=== PATIENT | male | born 1940 | race Caucasian/White ===

== ENCOUNTER 2018-09-11 18:38 | Inpatient (IN) | payer MEDICARE ==
[~2018-09-11] VITALS: Ht 175.3 cm; Wt 97.5 kg
[2018-09-11] MEDS ORDERED: ALBUTEROL SULF 0.083% NEB SOLN 3 ML NEB NEB STA ×2 (18:47)
[2018-09-11] MEDS ORDERED: IPRATROPIUM BROMIDE 0.02% 2.5 ML NEB NEB STA (18:47)
[2018-09-11] MEDS ORDERED: METHYLPREDNISOLONE SOD SUCC 125 MG/2ML VIAL IV ONE (19:00)
--- NOTE | 2018-09-11 19:51 | Diagnostic Imaging Report ---
EXAMINATION: CXR 1 [facility] INDICATION: Shortness of breath and wheezing for about 24 hours. History of COPD. ^[id number] ^1934 COMPARISON: None FINDINGS: AP view TUBES and LINES: None. LUNGS: Lungs are well inflated. Bibasilar interstitial prominence. No focal consolidations. PLEURA: No pleural effusion or pneumothorax. HEART AND MEDIASTINUM: The cardiomediastinal silhouette is unremarkable. BONES AND SOFT TISSUES: No acute osseous lesion. Soft tissues are unremarkable. UPPER ABDOMEN: No free air under the diaphragm. IMPRESSION: Bibasilar interstitial prominence may reflect bronchitis. No focal consolidations. Signed by: DR. Bennett Ingram MD on 09/11/2018 7:48 PM
[2018-09-11] MEDS ORDERED: CEFTRIAXONE SOD 1 GM VIAL IV SCH (20:30)
[2018-09-11] MEDS ORDERED: SODIUM CHLORIDE FLUSH 10 ML SYR INJ PRN (20:30)
[2018-09-11] MEDS ORDERED: AZITHROMYCIN 500MG/NS 250 ML 250 ML IV SCH (20:30)
[2018-09-11] MEDS ORDERED: ASPIRIN 81 MG CHEW TAB PO ONE (20:30)
[2018-09-11] MEDS ORDERED: ZOLPIDEM TARTRATE 5 MG TAB PO PRN (20:45)
[2018-09-11] MEDS ORDERED: ONDANSETRON HCL INJ 2 MG/ML VIAL IV PRN (20:45)
[2018-09-11] MEDS ORDERED: IBUPROFEN 200 MG TAB PO PRN (20:45)
[2018-09-11] MEDS ORDERED: CLONIDINE HCL 0.1 MG TAB PO PRN (20:45)
[2018-09-11] MEDS ORDERED: DIPHENHYDRAMINE HCL INJ 50 MG/ML VIAL IV PRN (20:45)
[2018-09-11] MEDS ORDERED: ENALAPRILAT IV INJ 1.25 MG/ML VIAL IV PRN (20:45)
[2018-09-11] MEDS ORDERED: ACETAMINOPHEN 325 MG TAB PO PRN (20:45)
[2018-09-11] MEDS ORDERED: MORPHINE SULFATE 2 MG/ML SYR IV PRN (20:45)
[2018-09-11] MEDS ORDERED: HYDROCODONE/APAP 7.5MG-325MG 1 EA TAB PO PRN (20:45)
--- OUTSIDE RECORDS SUMMARY | 2018-09-11 21:39 | XMS REPORT ---
Author Author [facility] Address Unknown Phone Unavailable Care Team Providers Care Zipper Trimmer Name Role Phone Chet RAMIRES Unavailable Unavailable Problems This patient has no known problems. Allergies, Adverse Reactions, Alerts This patient has no known allergies or adverse reactions. Medications This patient has no known medications. Results Test Description Test Time Test Comments Text Results Atomic Results Result Comments CXR 1 [facility] 2018-09-11 19:44:00 [place] [address] Patient Name: OLGA TAO MR #: [id number] : 1940 Age/Sex: 78/M Req #: [id number] Adm Physician: Ordered by: CARLTON RAMIRES MD Report #: [id number] Location: [facility] Room/Bed: Procedure: [id number] HOPD/CXR 1 [facility] - [facility] Exam Date: 09/11/18 Exam Time: 1935 REPORT STATUS: Signed EXAMINATION: CXR 1 [facility] INDICATION: Shortness of breath and wheezing for about 24 hours. History of COPD. [id number] COMPARISON: None FINDINGS: AP view TUBES and LINES: None. LUNGS: Lungs are well inflated. Bibasilar interstitial prominence. No focal consolidations. PLEURA: No pleural effusion or pneumothorax. HEART AND MEDIASTINUM: The cardiomediastinal silhouette is unremarkable. BONES AND SOFT TISSUES: No acute osseous lesion. Soft tissues are unremarkable. UPPER ABDOMEN: No free air under the diaphragm. IMPRESSION: Bibasilar interstitial prominence may reflect bronchitis. No focal consolidations. Signed by: DR. Bennett Hyatt MD on 09/11/2018 7:48 PM Dictated By: BENNETT HYATT MD 47 Transcribed By: MARTY on 09/11/181947 COPY TO: CARLTON RAMIRES MD
--- NOTE | 2018-09-11 22:59 | Diagnostic Imaging Report ---
EXAM: CT Chest WITH contrast 09/11/2018 12:00 AM INDICATION: Patient complaining of worsening shortness of breath and wheezing COMPARISON: None TECHNIQUE: Chest was scanned utilizing a multidetector helical scanner from the lung apex through the level of the diaphragm after administration of IV contrast. Thin section reconstructions were obtained with special concentration on the pulmonary arteries. Coronal and sagittal reformations were obtained. Pulmonary embolism protocol was performed. IV CONTRAST: 100 cc of Isovue-370 RADIATION DOSE: Total DLP: 671.82 mGy*cm Estimated effective dose: (DLP x 0.014 x size factor) mSv COMPLICATIONS: None FINDINGS: LINES/ TUBES: None. LUNGS AND AIRWAYS: No filling defect is identified within the pulmonary arteries to the segmental level. The lungs are unremarkable. Airways are normal. PLEURA: The pleural spaces are clear. HEART AND MEDIASTINUM: The thyroid gland is normal. No mediastinal, hilar or axillary lymphadenopathy. The heart is normal in size.. There is no pericardial effusion. There are mild atherosclerotic calcifications in the aorta and coronary arteries.. Main pulmonary artery measures 2.9 cm in diameter , slightly dilated. UPPER ABDOMEN: Limited non-contrast views of the upper abdomen show no abnormality within the visualized liver, spleen, pancreas, or kidneys. The adrenal glands are normal. BONES: The visualized bony thorax is within normal limits for patient's age. Mild kyphotic deformity SOFT TISSUES: Unremarkable. IMPRESSION: 1. No evidence of acute intrathoracic abnormality, specifically no evidence of pulmonary embolism. 2. Mild atherosclerotic disease of the thoracic aorta and branches Signed by: Dr. Thomas Khan M.D. on 09/11/2018 10:55 PM
[2018-09-11] MEDS: ALBUTEROL/IPRATROPIUM 3 ML NEB NEB SCH (23:00)
[2018-09-12] VITALS (7 sets, daily range): BP systolic 121–157; BP diastolic 77–101
[2018-09-12] MEDS ORDERED: ATORVASTATIN CA10 MG PO (01:40)
[2018-09-12] MEDS ORDERED: LABETALOL HCL200 MG PO (01:40)
[2018-09-12] MEDS ORDERED: SYMBICORT 16010.2 GM IH (01:40)
[2018-09-12] MEDS ORDERED: AMLODIPINE BESY10 MG PO (01:40)
[2018-09-12] MEDS ORDERED: PROAIR HFA INH8.5 GM IH (01:40)
[2018-09-12] MEDS ORDERED: LEVOTHYROXINE50 MCG PO (01:40)
[2018-09-12 01:54] LABS: CREATINE KINASE MB 10.4 ng/mL (0-5.0)
[2018-09-12] MEDS: ALBUTEROL/IPRATROPIUM 3 ML NEB NEB SCH ×6 (03:00→23:58)
[2018-09-12 06:06] LABS: BASOPHILS % 0.2 % (0.0-1.0); HEMATOCRIT 40.3 % (38.2-49.6); HEMOGLOBIN 14.3 g/dL (14.0-18.0); LYMPHOCYTES # (AUTO) 0.8 (1.0-3.2); LYMPHOCYTES % 11.7 % (18.0-39.1); MEAN CORPUSCULAR HEMOGLOBIN 33.7 pg (28-32); MEAN CORPUSCULAR HGB CONC 35.5 g/dL (31-35); MONOCYTES # (AUTO) 0.1 (0.2-0.8); MONOCYTES % 0.9 % (4.4-11.3); NEUTROPHILS # (AUTO) 5.5 (2.1-6.9); NEUTROPHILS % 86.7 % (38.7-80.0); PLATELET COUNT 264 x10e3/uL (140-360); RED BLOOD COUNT 4.24 x10e6/uL (4.3-5.7); RED CELL DISTRIBUTION WIDTH 12.4 % (11.7-14.4)
[2018-09-12 06:31] LABS: ANION GAP 17.8 mmol/L (8-16); BLOOD UREA NITROGEN 13 mg/dL (7-26); BUN/CREATININE RATIO 16 (6-25); CALCIUM 9.1 mg/dL (8.4-10.2); CARBON DIOXIDE 22 mmol/L (22-29); CHLORIDE 95 mmol/L (98-107); CREATININE, SERUM 0.79 mg/dL (0.72-1.25); EST GLOMERULAR FILTRATION RATE > 60 ML/MIN (60-); GLUCOSE 136 mg/dL (74-118); POTASSIUM 4.8 mmol/L (3.5-5.1); SODIUM 130 mmol/L (136-145)
[2018-09-12] MEDS: FAMOTIDINE 20 MG TAB PO SCH ×2 (08:02→16:30)
[2018-09-12] MEDS: NICOTINE 14 MG/EA PATCH TOP SCH (09:07)
[2018-09-12 12:57] LABS: CREATINE KINASE MB 8.1 ng/mL (0-5.0)
[2018-09-12] MEDS ORDERED: FUROSEMIDE INJ 10 MG/ML 2 ML VIAL IV ONE (14:15)
[2018-09-12] MEDS: BENAZEPRIL HCL 10 MG TAB PO SCH (15:05)
[2018-09-12] MEDS: PREDNISONE 20 MG TAB PO SCH (15:05)
[2018-09-12] MEDS: AMLODIPINE BESYLATE 10 MG TAB PO SCH (15:05)
[2018-09-12] MEDS: ENOXAPARIN SOD INJ 40 MG/0.4 ML SYR SC SCH (17:35)
[2018-09-12] MEDS: DOXYCYCLINE HYCLATE TABLET 100 MG TAB PO SCH (17:35)
[2018-09-12] MEDS: ATORVASTATIN 10 MG TAB PO SCH (20:38)
[2018-09-13] VITALS (7 sets, daily range): BP systolic 119–143; BP diastolic 74–88
[2018-09-13] MEDS: ALBUTEROL/IPRATROPIUM 3 ML NEB NEB SCH ×6 (03:12→23:05)
[2018-09-13] MEDS: LEVOTHYROXINE SODIUM 100 MCG TAB PO SCH (05:15)
[2018-09-13] MEDS: FAMOTIDINE 20 MG TAB PO SCH (07:53)
[2018-09-13] MEDS: PREDNISONE 20 MG TAB PO SCH (09:24)
[2018-09-13] MEDS: AMLODIPINE BESYLATE 10 MG TAB PO SCH (09:24)
[2018-09-13] MEDS: BENAZEPRIL HCL 10 MG TAB PO SCH (09:24)
[2018-09-13] MEDS: NICOTINE 14 MG/EA PATCH TOP SCH (09:24)
[2018-09-13] MEDS: DOXYCYCLINE HYCLATE TABLET 100 MG TAB PO SCH ×2 (09:24→17:33)
[2018-09-13] MEDS ORDERED: FUROSEMIDE INJ 10 MG/ML 4 ML VIAL IV NR ×2 (11:45→17:00)
--- NOTE | 2018-09-13 13:42 | Diagnostic Imaging Report ---
EXAMINATION: CHEST SINGLE (PORTABLE) INDICATION: ^HYPOXEMIA COMPARISON: Chest x-ray 09/11/2018. FINDINGS: AP view TUBES and LINES: None. LUNGS: Lungs are well inflated. There are bibasilar atelectasis. There is mild prominence of the central pulmonary vasculature, consistent with pulmonary venous congestion. PLEURA: No pleural effusion or pneumothorax. HEART AND MEDIASTINUM: Cardiac size is mildly enlarged. There are atherosclerotic calcifications within the aorta. BONES AND SOFT TISSUES: No acute osseous lesion. Soft tissues are unremarkable. UPPER ABDOMEN: No free air under the diaphragm. IMPRESSION: Mild central pulmonary venous congestion. Signed by: Dr. Gunner Phelan M.D. on 09/13/2018 1:39 PM
[2018-09-13] MEDS: ENOXAPARIN SOD INJ 40 MG/0.4 ML SYR SC SCH (17:33)
[2018-09-13] MEDS: AZELASTINE HCL 137 MCG NASAL SPRAY NS SCH (17:33)
[2018-09-13] MEDS: ATORVASTATIN 10 MG TAB PO SCH (21:18)
--- NOTE | 2018-09-13 21:50 | Progress Note ---
DATE: September 13, 2018 CARDIOVASCULAR PROGRESS NOTE SUBJECTIVE: No major events overnight. Breathing has improved. Has been urinating quite a bit today with IV Lasix. No chest pain or shortness of breath. OBJECTIVE VITAL SIGNS: Temperature 96.0, pulse 86, respiratory rate 18, blood pressure 143/79, and satting 96% on 3 liters nasal cannula. GENERAL: Obese white man, in no acute distress. CARDIOVASCULAR: Regular rate and rhythm. No murmurs, rubs or gallops. LUNGS: Diffuse expiratory wheezing; however, air movement is improved compared to yesterday. ABDOMEN: Obese, soft, and nontender. No masses. NEURO AND PSYCH: Alert and oriented to person, place and time. Normal affect. LABORATORY DATA: Reviewed. IMAGING DATA: Reviewed. TELEMETRY DATA: Reviewed, shows normal sinus rhythm. ASSESSMENT 1. Auans-jj-[id number] chronic obstructive pulmonary disease exacerbation. 2. Dyspnea on exertion. 3. Bilateral lower extremity chronic venous insufficiency with lymphedema. PLAN: Continue current medications and diuretics. Patient needs outpatient venous workup for venous insufficiency as well as treatment for lymphedema. He can follow up with Kimmy or our office for this as an outpatient. Thank you for this consult. We will continue to follow. Job#: [id number] ALEXANDRA
[2018-09-14] VITALS (7 sets, daily range): BP systolic 125–157; BP diastolic 80–91
--- NOTE | 2018-09-14 01:06 | Consultation ---
DATE OF CONSULTATION: September 13, 2018 PULMONARY MEDICINE CONSULT REFERRING PHYSICIAN: Dr. Shelton REASON FOR REFERRAL: Shortness of breath. HISTORY OF PRESENT ILLNESS: Mr. Dooley is a pleasant 78-year-old gentleman with shortness of breath. The patient was admitted to [facility] on September 11, 2018 with shortness of breath. The shortness of breath was worse for 2 weeks. The patient took a steroid pack, but it did not help as an outpatient. Therefore, he came into the hospital. The patient had coughing, wheezing, and dyspnea on exertion. He has also had paroxysmal nocturnal dyspnea of late. He has been in the hospital, but it was noted that he was continuing to have desaturations to 87% with room air on walking. The patient continued with slow progress; therefore, I am consulted. No history of asthma, no allergies, no GERD. No home oxygen in the past. He is currently on ProAir and Symbicort 160 mcg. Prednisone has been given about every 4 months for the last year and a half, whereas previously he never needed these prednisone courses. He has daily clear sputum production. PAST MEDICAL HISTORY: Acute respiratory failure, hypoxemia, possible diastolic CHF, history of COPD, chronic bronchitis, and obesity. Other elements of history are missing at this time. thyroid disorder, hypertension, dyslipidemia, unknown other. MEDICATIONS: Medication list reviewed per electronic record. ALLERGIES: No known drug allergies. SOCIAL HISTORY: The patient quit drinking in 1989. No drugs. He is active smoker, age 20 to 78 active, 1.5 PPD. 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 For the majority of his life he is without additional exposures. FAMILY HISTORY: Noncontributory. REVIEW OF SYSTEMS GENERAL: No weight changes. OPHTHALMOLOGIC: No double vision. ENT: No dry mouth. ENDOCRINE: No reports of uncontrolled thyroid condition. PULMONARY: No hemoptysis. CARDIAC: No heart attacks. GI: No constipation. : No blood in urine. INTEGUMENT: No rash. MUSCULOSKELETAL: No septic joints. NEUROLOGIC: No seizures. PSYCHOLOGIC: Stable mentation. OBJECTIVE: VITAL SIGNS: Afebrile, vital signs noted per the chart record. GENERAL: In no distress but he is short of breath on mild walking. HEENT: Normocephalic and atraumatic. NECK: Supple. Throat midline. LUNGS: Bilateral air entry, few rhonchi, small wheezes. CARDIOVASCULAR: S1, S2. No murmurs, rubs, or gallops. ABDOMEN: Obese, soft. EXTREMITIES: No clubbing, no cyanosis. There is 2 to 3+ leg edema. INTEGUMENT: No rash, no purpura. LABS: BUN 13, creatinine 0.8. White count 6.4, hematocrit 40, platelets 264. Chest x-ray clear. CT angiogram with mostly unremarkable state, pulmonary artery diameter 31 mm. No PE. IMPRESSION AND PLAN: 1. Chronic hypoxemic failure likely, chronic hypoxemia. 2. COPD with acute exacerbation. 3. Chronic bronchitis phenotype. 4. Obesity, suspect obstructive sleep apnea. 5. Possible obesity hypoventilation syndrome. 6. Leg edema, possible pulmonary hypertension. 7. Chronic smoker, active. 8. Diastolic heart failure with echo with 60% to 65% LVEF, unspecified right ventricular systolic pressure noted. 9. Kyphosis, suspect partial thoracic restriction abnormality. The patient already had good outpatient followup; therefore, we did not recommend to change treatment excessively at this time. His complex pulmonary condition is likely a combination of COPD/chronic bronchitis and kyphosis. There is a substantial chance he has sleep apnea, cor pulmonale, chronic hypoxemia. It is unclear if he has allergies, then he will be benefiting from distinguishing if he has any coexisting allergic phenotype. Consider IG level screening. Consideration for allergic versus non-allergic treatment of the lower airway disease as well as small amount of upper airway disease which he states is nasal congestion. For now, I just recommend to continue the Symbicort eventually with ProAir and saline nasal sprays for maintenance. Continue prednisone taper for now and antibiotics. Based on PFTs and the history of recurrent hospitalization, he should be considered for Daliresp and azithromycin chronic therapy. Weight loss is highly recommended. He is recommended for outpatient sleep studies. He needs home oxygen evaluation prior to discharge. Today, the patient went to 87% on room air on exertion. On 3 liters per minute after exertion, his oxygen saturation was 96% saturation. Thank you very much Dr. Shelton for this consult. Do not hesitate to contact me if I could help in any way. Job#: [id number] DARYN
[2018-09-14] MEDS: ALBUTEROL/IPRATROPIUM 3 ML NEB NEB SCH ×6 (03:40→23:15)
[2018-09-14] MEDS: LEVOTHYROXINE SODIUM 100 MCG TAB PO SCH (05:50)
[2018-09-14 06:27] LABS: BASOPHILS % 0.2 % (0.0-1.0); EOSINOPHILS % 0.2 % (0.0-6.0); HEMATOCRIT 39.6 % (38.2-49.6); HEMOGLOBIN 13.8 g/dL (14.0-18.0); LYMPHOCYTES # (AUTO) 2.9 (1.0-3.2); LYMPHOCYTES % 22.3 % (18.0-39.1); MEAN CORPUSCULAR HEMOGLOBIN 32.7 pg (28-32); MEAN CORPUSCULAR HGB CONC 34.8 g/dL (31-35); MEAN CORPUSCULAR VOLUME 93.8 fL (81-99); MONOCYTES # (AUTO) 1.2 (0.2-0.8); MONOCYTES % 8.9 % (4.4-11.3); PLATELET COUNT 294 x10e3/uL (140-360); RED BLOOD COUNT 4.22 x10e6/uL (4.3-5.7); RED CELL DISTRIBUTION WIDTH 12.5 % (11.7-14.4)
[2018-09-14 06:53] LABS: ANION GAP 12.9 mmol/L (8-16); BLOOD UREA NITROGEN 14 mg/dL (7-26); BUN/CREATININE RATIO 17 (6-25); CALCIUM 9.5 mg/dL (8.4-10.2); CARBON DIOXIDE 28 mmol/L (22-29); CHLORIDE 92 mmol/L (98-107); CREATININE, SERUM 0.84 mg/dL (0.72-1.25); EST GLOMERULAR FILTRATION RATE > 60 ML/MIN (60-); GLUCOSE 87 mg/dL (74-118); MAGNESIUM 2.3 MG/DL (1.3-2.1); POTASSIUM 3.9 mmol/L (3.5-5.1); SODIUM 129 mmol/L (136-145)
[2018-09-14 07:05] LABS: THYROID STIMULATING HORMONE 0.617 uIU/mL (0.350-4.940)
[2018-09-14] MEDS: AZELASTINE HCL 137 MCG NASAL SPRAY NS SCH ×2 (09:05→17:24)
[2018-09-14] MEDS: FUROSEMIDE INJ 10 MG/ML 4 ML VIAL IV SCH (09:05)
[2018-09-14] MEDS: DOXYCYCLINE HYCLATE TABLET 100 MG TAB PO SCH ×2 (09:06→17:24)
[2018-09-14] MEDS: PREDNISONE 20 MG TAB PO SCH (09:06)
[2018-09-14] MEDS: BENAZEPRIL HCL 10 MG TAB PO SCH (09:06)
[2018-09-14] MEDS: NICOTINE 14 MG/EA PATCH TOP SCH (09:06)
[2018-09-14] MEDS: AMLODIPINE BESYLATE 10 MG TAB PO SCH (09:06)
[2018-09-14] MEDS: BENZONATATE 100 MG CAP PO SCH ×2 (15:27→20:54)
[2018-09-14] MEDS: ENOXAPARIN SOD INJ 40 MG/0.4 ML SYR SC SCH (17:24)
--- NOTE | 2018-09-14 18:20 | Progress Note ---
DATE: September 14, 2018 PULMONARY MEDICINE PROGRESS NOTE SUBJECTIVE: Mr. Dooley was seen and examined at the bedside. He feels a little bit better today. He feels quite short of breath. Two liters per minute by nasal cannula is still ongoing. He is taking Lasix and he peed a lot, but his sodium was decreased on blood work. REVIEW OF SYSTEMS: No headaches, no bleeding. OBJECTIVE VITAL SIGNS: Afebrile. Vital signs noted per electronic record. GENERAL: No acute distress, alert and calm in bed. HEENT: Normocephalic, atraumatic. NECK: Supple. Throat midline. LUNGS: Bilateral air entry, tight, decreased wheezing today. CARDIOVASCULAR: S1, S2. No murmurs, rubs, or gallops. ABDOMEN: Soft and nontender. EXTREMITIES: No clubbing, no cyanosis. There is still 2 to 3+ edema, leg. INTEGUMENT: No rash. No purpura. LABS: Sodium 129, potassium 3.9, BUN 14, creatinine 0.8. White count 15, hematocrit 40. IMPRESSION 1. Chronic obstructive pulmonary disease with exacerbation. 2. Kyphosis. 3. Hypoxemia. 4. Probable pulmonary hypertension. 5. Weakness/debility. 6. Smoking definity. PLAN: Diuretic can be continued, although, unfortunately cannot increase it with decreasing sodium. Continue steroids. Bronchodilators. Home oxygen testing. Followup IgE level as medicines may alter if the patient has no significant atrophy. Job#: [id number] DAWSON
[2018-09-14] MEDS: ATORVASTATIN 10 MG TAB PO SCH (20:54)
[2018-09-15] VITALS (7 sets, daily range): BP systolic 145–166; BP diastolic 79–111
[2018-09-15] MEDS: ALBUTEROL/IPRATROPIUM 3 ML NEB NEB SCH ×6 (03:00→23:30)
[2018-09-15] MEDS: LEVOTHYROXINE SODIUM 100 MCG TAB PO SCH (05:40)
[2018-09-15] MEDS: AZELASTINE HCL 137 MCG NASAL SPRAY NS SCH ×2 (05:46→17:42)
[2018-09-15] MEDS: FUROSEMIDE INJ 10 MG/ML 4 ML VIAL IV SCH (09:38)
[2018-09-15] MEDS: NICOTINE 14 MG/EA PATCH TOP SCH (09:38)
[2018-09-15] MEDS: PREDNISONE 20 MG TAB PO SCH (09:38)
[2018-09-15] MEDS: BENZONATATE 100 MG CAP PO SCH ×3 (09:38→20:24)
[2018-09-15] MEDS: BENAZEPRIL HCL 10 MG TAB PO SCH (09:38)
[2018-09-15] MEDS: AMLODIPINE BESYLATE 10 MG TAB PO SCH (09:38)
[2018-09-15] MEDS: DOXYCYCLINE HYCLATE TABLET 100 MG TAB PO SCH ×2 (09:38→17:42)
--- NOTE | 2018-09-15 14:43 | Progress Note ---
DATE: September 15, 2018 PULMONARY MEDICINE PROGRESS NOTE SUBJECTIVE: Mr. Dooley was seen and examined at bedside. Oxygen saturation 94%. Three liters per minute by nasal cannula. Patient overall felt like he is doing much worse today. He is having more shortness of breath. More coughing. Patient having increased cough with some phlegm coming up. REVIEW OF SYSTEMS: No headaches, no rash. OBJECTIVE VITAL SIGNS: Afebrile. Vital signs noted per electronic record. GENERALLY: No acute distress, but intermittent cough is seen. Looks chronic. HEENT: Normocephalic, atraumatic. NECK: Supple. Throat midline. LUNGS: Bilateral air entry, moderate wheezes, a few rhonchi. CARDIOVASCULAR: S1 and S2. No murmurs, rubs or gallops. ABDOMINAL: Soft, nontender. EXTREMITIES: No clubbing, no cyanosis. There is still the 2 to 3+ edema. INTEGUMENT: No rash. No purpura. LABS: Sodium 129, potassium 3.9, BUN 14, creatinine 0.8. White count 13, hematocrit 39, platelets 294. IMPRESSION AND PLAN 1. Chronic obstructive pulmonary disease with exacerbation. 2. Concomitant kyphosis, thoracic restrictive disorder likely. 3. Chronic bronchitis phenotype. 4. Peripheral edema, likely cor pulmonale. 5. Hyponatremia. Patient remaining on the Lasix at this time although it will be difficult to increase it given the electrolyte abnormalities right now. Continue antibiotics. Steroids can be continued. Will add theophylline. He also needs N-acetylcysteine 600 mg twice a day after discharge. Consideration still being made pending the IgE level if he is allergic or not on next level of medicines that need to be increased whether there should be steroid-based versus nonsteroid-based medications. Will follow along closely. He needs more outpatient workup for his pulmonary process. Job#: [id number] EV
[2018-09-15] MEDS: LISINOPRIL 10 MG TAB PO SCH (15:00)
[2018-09-15] MEDS ORDERED: BENZONATATE 100 MG CAP PO SCH (15:00)
--- NOTE | 2018-09-15 15:06 | Progress Note ---
DATE: September 15, 2018 CARDIOLOGY PROGRESS NOTE SUBJECTIVE: No major events overnight. Still short of breath. No chest pain. OBJECTIVE VITAL SIGNS: Temperature is 97, heart rate is 98, respirations are 18, blood pressure is 150/111, oxygen saturation 96% on 3 liters nasal cannula. GENERALLY: He is an elderly man sitting in bed. Appears mildly short of breath. HEAD: Normocephalic, atraumatic. EYES: The extraocular muscles are intact. Conjunctiva is clear. NECK: No jugular venous distention. No bruits. CARDIOVASCULAR: He is regular rate and rhythm. LUNGS: There are scattered wheezes. ABDOMEN: Soft, nontender, nondistended. EXTREMITIES: 2+ edema. VASCULAR: Diminished pulses. SKIN: Warm, dry, intact. NEUROLOGIC: No focal deficits noted. Laboratory and imaging data reviewed. ASSESSMENT 1. Fcsgz-bq-ahvpuvq obstructive pulmonary disease with exacerbation. 2. Dyspnea on exertion. 3. Bilateral lower extremity edema with venous insufficiency. 4. Hypertension. 5. Tobacco use. RECOMMENDATIONS: Will continue current medications and add afterload reduction for better blood pressure control. Patient had been on labetalol; but, however, this has been discontinued. Continue diuretics for adequate diuresis. Patient has normal left ventricular systolic function. No further current cardiovascular evaluation is needed at this point in time. Will continue to follow along with you. Job#: [id number] NAYANA
[2018-09-15] MEDS: THEOPHYLLINE 200 MG TABCR PO SCH (17:42)
[2018-09-15] MEDS: ENOXAPARIN SOD INJ 40 MG/0.4 ML SYR SC SCH (17:42)
[2018-09-15] MEDS: ATORVASTATIN 10 MG TAB PO SCH (20:24)
[2018-09-16] VITALS (7 sets, daily range): BP systolic 124–146; BP diastolic 80–90
[2018-09-16] MEDS ORDERED: METHYLPREDNISOLONE SOD SUCC 125 MG/2ML VIAL IV ONE (00:45)
--- NOTE | 2018-09-16 01:09 | Progress Note ---
DATE: September 16, 2018 PULMONARY MEDICINE PROGRESS NOTE SUBJECTIVE: Mr. Dooley was seen and examined at bedside. Patient continues to have some slow progress. Still some increased secretions and increased wheezing compared to yesterday. 2 liters per minute of nasal cannula. 94% oxygen saturation. Still with the 2+ to 3 edema. He is wishing to sleep in recliner rather than bed. One bowel movement today. REVIEW OF SYSTEMS: No bleeding, no headaches. OBJECTIVE: VITAL SIGNS: Afebrile, vital signs noted per electronic record. GENERAL: In no acute distress, alert and calm. HEENT: Normocephalic, atraumatic. NECK: Supple. Throat midline. LUNGS: Bilateral air entry, mild to moderate wheezes, few rhonchi. CARDIOVASCULAR: S1, S2. No murmurs, rubs, or gallops. ABDOMEN: Soft, nontender. EXTREMITIES: No clubbing, no cyanosis, there is the edema but stable from yesterday. INTEGUMENT: No rash, no purpura. Some venous stasis changes to legs. IMPRESSIONS AND PLAN: 1. Chronic obstructive pulmonary disease with exacerbation. 2. Kyphosis. 3. Chronic hypoxemic respiratory failure. 4. Chronic bronchitis. 6. Obesity, likely obstructive sleep apnea and possible obesity hypoventilation syndrome. 7. Leg edema, suspected cor pulmonale. 8. Chronic smoker. 9. Diastolic heart failure with echocardiogram, 60% to 65% left ventricular ejection fraction. Will give 1 additional dose of Solu-Medrol right now. Continue daily prednisone. Continue bronchodilators. Continue to ambulate the patient. Home oxygen assessment was ordered. Job#: [id number]
[2018-09-16] MEDS: ALBUTEROL/IPRATROPIUM 3 ML NEB NEB SCH ×6 (03:00→23:30)
[2018-09-16] MEDS: LEVOTHYROXINE SODIUM 100 MCG TAB PO SCH (05:32)
[2018-09-16 06:35] LABS: ANION GAP 14.4 mmol/L (8-16); BLOOD UREA NITROGEN 18 mg/dL (7-26); BUN/CREATININE RATIO 22 (6-25); CALCIUM 9.9 mg/dL (8.4-10.2); CARBON DIOXIDE 32 mmol/L (22-29); CHLORIDE 85 mmol/L (98-107); CREATININE, SERUM 0.82 mg/dL (0.72-1.25); EST GLOMERULAR FILTRATION RATE > 60 ML/MIN (60-); GLUCOSE 101 mg/dL (74-118); POTASSIUM 4.4 mmol/L (3.5-5.1); SODIUM 127 mmol/L (136-145)
[2018-09-16] MEDS: FUROSEMIDE INJ 10 MG/ML 4 ML VIAL IV SCH ×2 (09:35→16:09)
[2018-09-16] MEDS: PREDNISONE 20 MG TAB PO SCH (09:37)
[2018-09-16] MEDS: AMLODIPINE BESYLATE 10 MG TAB PO SCH (09:37)
[2018-09-16] MEDS: AZELASTINE HCL 137 MCG NASAL SPRAY NS SCH ×2 (09:37→16:09)
[2018-09-16] MEDS: BENAZEPRIL HCL 10 MG TAB PO SCH (09:37)
[2018-09-16] MEDS: LISINOPRIL 10 MG TAB PO SCH (09:38)
[2018-09-16] MEDS: DOXYCYCLINE HYCLATE TABLET 100 MG TAB PO SCH ×2 (09:38→16:09)
[2018-09-16] MEDS: NICOTINE 14 MG/EA PATCH TOP SCH (09:38)
[2018-09-16] MEDS: BENZONATATE 100 MG CAP PO SCH ×3 (09:38→21:30)
[2018-09-16] MEDS: THEOPHYLLINE 200 MG TABCR PO SCH ×2 (09:38→21:30)
--- NOTE | 2018-09-16 14:40 | Progress Note ---
DATE: September 16, 2018 CARDIOLOGY PROGRESS NOTE SUBJECTIVE: The patient denies chest pain. However, he is still short of breath. OBJECTIVE VITAL SIGNS: Temperature is 97.9 degrees, pulse 94, respiratory rate 20, blood pressure 128/84, oxygen saturation 98% on 3 liters nasal cannula. GENERAL: Elderly man, awake, alert, in no acute distress. LUNGS: Diminished breath sounds throughout. No wheezes or crackles. CARDIOVASCULAR: Normal rate, regular rhythm. No murmur. Normal S1 and S2. ABDOMEN: Soft, nontender. EXTREMITIES: There is 3+ pitting edema bilaterally. CARDIAC MEDICATIONS 1. Lisinopril 10 mg p.o. daily. 2. Amlodipine 10 mg p.o. daily. 3. Benazepril 20 mg p.o. daily. 4. Furosemide 40 mg IV daily. 5. Levothyroxine 175 mcg p.o. daily. 6. Enoxaparin 40 mg subcutaneously daily. 7. Atorvastatin 10 mg p.o. each bedtime. LABS: Sodium 127, potassium 4.4, chloride 85, CO2 32, BUN 18, creatinine 0.82. TELEMETRY: Normal sinus rhythm. IMPRESSION 1. Nclsp-gf-bpbprky obstructive pulmonary disease with exacerbation. 2. Bilateral lower extremity edema with venous insufficiency. 3. Dyspnea on exertion. 4. Hypertension. 5. Tobacco use. RECOMMENDATIONS: Increase diuretics. Patient is on both lisinopril and benazepril. We will, therefore, discontinue lisinopril. Check BNP. Continue current cardiac medications otherwise. No further cardiac evaluation is indicated at this time. Thank you for this consult. We will continue to follow. Job#: [id number]
[2018-09-16] MEDS: ENOXAPARIN SOD INJ 40 MG/0.4 ML SYR SC SCH (16:09)
[2018-09-16] MEDS: ATORVASTATIN 10 MG TAB PO SCH (21:30)
[2018-09-17] VITALS (7 sets, daily range): BP systolic 104–162; BP diastolic 72–93
[2018-09-17] MEDS: ALBUTEROL/IPRATROPIUM 3 ML NEB NEB SCH ×4 (03:00→23:07)
[2018-09-17] MEDS: LEVOTHYROXINE SODIUM 100 MCG TAB PO SCH (05:26)
[2018-09-17 05:36] LABS: BASOPHILS % 0.1 % (0.0-1.0); EOSINOPHILS % 0.1 % (0.0-6.0); HEMATOCRIT 40.2 % (38.2-49.6); HEMOGLOBIN 14.2 g/dL (14.0-18.0); LYMPHOCYTES # (AUTO) 2.1 (1.0-3.2); LYMPHOCYTES % 14.5 % (18.0-39.1); MEAN CORPUSCULAR HEMOGLOBIN 32.9 pg (28-32); MEAN CORPUSCULAR HGB CONC 35.3 g/dL (31-35); MEAN CORPUSCULAR VOLUME 93.3 fL (81-99); MONOCYTES # (AUTO) 1.3 (0.2-0.8); MONOCYTES % 8.9 % (4.4-11.3); NEUTROPHILS # (AUTO) 11.2 (2.1-6.9); NEUTROPHILS % 75.9 % (38.7-80.0); PLATELET COUNT 299 x10e3/uL (140-360); RED BLOOD COUNT 4.31 x10e6/uL (4.3-5.7)
[2018-09-17 06:08] LABS: ANION GAP 14.4 mmol/L (8-16); BLOOD UREA NITROGEN 23 mg/dL (7-26); BUN/CREATININE RATIO 23 (6-25); CALCIUM 9.8 mg/dL (8.4-10.2); CARBON DIOXIDE 31 mmol/L (22-29); CHLORIDE 83 mmol/L (98-107); CREATININE, SERUM 0.98 mg/dL (0.72-1.25); EST GLOMERULAR FILTRATION RATE > 60 ML/MIN (60-); GLUCOSE 106 mg/dL (74-118); POTASSIUM 3.4 mmol/L (3.5-5.1); SODIUM 125 mmol/L (136-145)
[2018-09-17] MEDS: AZELASTINE HCL 137 MCG NASAL SPRAY NS SCH ×2 (09:57→17:55)
[2018-09-17] MEDS: THEOPHYLLINE 200 MG TABCR PO SCH ×2 (09:57→20:40)
[2018-09-17] MEDS: BENAZEPRIL HCL 10 MG TAB PO SCH (09:57)
[2018-09-17] MEDS: NICOTINE 14 MG/EA PATCH TOP SCH (09:57)
[2018-09-17] MEDS: PREDNISONE 20 MG TAB PO SCH (09:57)
[2018-09-17] MEDS: FUROSEMIDE INJ 10 MG/ML 4 ML VIAL IV SCH ×2 (09:57→17:00)
[2018-09-17] MEDS: DOXYCYCLINE HYCLATE TABLET 100 MG TAB PO SCH ×2 (09:57→17:46)
[2018-09-17] MEDS: BENZONATATE 100 MG CAP PO SCH ×3 (09:57→20:40)
[2018-09-17] MEDS: AMLODIPINE BESYLATE 10 MG TAB PO SCH (09:57)
[2018-09-17] MEDS ORDERED: POTASSIUM CHLORIDE 20 MEQ TAB CR PO ONE (14:00)
[2018-09-17] MEDS ORDERED: SODIUM CHLORIDE 1 GM TAB PO ONE (14:00)
--- NOTE | 2018-09-17 15:09 | Diagnostic Imaging Report ---
EXAM: XR CHEST 1 VIEW DATE: 09/17/2018 1:12 PM INDICATION: Wheezing COMPARISON: 09/13/2018, no report available FINDINGS: Lines and Tubes: None Heart and Mediastinum: No acute cardiomediastinal findings. Lungs and Pleura: Chin obscures portions of the apices. Ill-defined opacities mid and lower lungs are slightly more conspicuous than previous study. Bones and Soft Tissues: No acute findings. IMPRESSION: 1. Ill-defined basilar opacities may represent atelectasis or infectious process. Signed by: Dr. Sea Jones MD on 09/17/2018 3:06 PM
[2018-09-17] MEDS: ENOXAPARIN SOD INJ 40 MG/0.4 ML SYR SC SCH (17:47)
--- NOTE | 2018-09-17 19:22 | Progress Note ---
DATE: September 17, 2018 CARDIOLOGY PROGRESS NOTE SUBJECTIVE: No major events overnight. Shortness of breath improved. OBJECTIVE VITAL SIGNS: Temperature 97.7, pulse 82, respiratory rate 18, blood pressure 137/72, satting 97% on 3 liters. GENERAL: Obese elderly white man in no acute distress. CARDIOVASCULAR: Regular rate and rhythm. No murmurs, rubs or gallops. LUNGS: Diminished breath sounds. Mild diffuse wheezing. ABDOMEN: Obese, soft, nontender. No masses. NEURO AND PSYCH: Alert and oriented to person, place and time. EXTREMITIES: With 3+ pitting edema bilaterally. CARDIOVASCULAR MEDICATIONS: Reviewed. LABORATORY DATA: Reviewed. TELEMETRY DATA: Reviewed. ASSESSMENT AND PLAN 1. Fhnje-ie-wjspbps chronic obstructive pulmonary disease exacerbation. 2. Bilateral lower extremity edema with venous insufficiency. 3. Dyspnea on exertion. 4. Hypertension. 5. Tobacco use. 6. Peripheral arterial disease with abdominal aortic aneurysm. RECOMMENDATIONS: Continue current cardiovascular medications. Blood pressure a little bit worse likely due to steroids. Will continue to monitor and increase blood pressure medications. . Will continue to follow. Job#: [id number] NAYANA
[2018-09-17] MEDS: ATORVASTATIN 10 MG TAB PO SCH (20:40)
[2018-09-18] VITALS (7 sets, daily range): BP systolic 103–148; BP diastolic 63–114
[2018-09-18] MEDS: ALBUTEROL/IPRATROPIUM 3 ML NEB NEB SCH ×6 (02:45→23:22)
--- NOTE | 2018-09-18 02:55 | Progress Note ---
DATE: September 17, 2018 PULMONARY MEDICINE PROGRESS NOTE SUBJECTIVE: Mr. Dooley was seen and examined at bedside. He was not necessarily better today. Patient continues to have lot of wheezes. 4 liters per minute by nasal cannula. 92% oxygen saturation. Still has 3+ leg edema. Patient was refusing some medicines today having to do with his sodium balance. REVIEW OF SYSTEMS: No headaches, no bleeding. OBJECTIVE: VITAL SIGNS: Afebrile, vital signs noted per electronic record. GENERAL: No acute distress, in bed, calm, some increased work of breathing. HEENT: Normocephalic, atraumatic. NECK: Supple. Throat midline. LUNGS: Bilateral air entry, moderate wheezing, few rhonchi. CARDIOVASCULAR: S1, S2. No murmurs, rubs, or gallops. ABDOMEN: Soft, nontender. EXTREMITIES: No clubbing, no cyanosis, there is stable 3+ edema. INTEGUMENT: No rash, no purpura. LABS: 125 sodium, 3.4 potassium, 23 BUN, 0.98 creatinine. 15 white count, 40 hematocrit. IMPRESSIONS AND PLAN: 1. Worsening hyponatremia. 2. Hypokalemia. 3. Total body fluid overloaded. 4. Cor pulmonale. 5. Chronic obstructive pulmonary disease with exacerbation. 6. Additional kyphosis, thoracic restrictive disorder. 7. Chronic hypoxemic respiratory failure. Diuresis issues discussed with nursing, cardiology . Give potassium. Encouraged to have RENITA stockings or other compression in the legs. Repeat chest x-ray today given his worsening. Continue supplemental oxygen. Continue to mobilize him, making him stronger. Job#: [id number]
[2018-09-18] MEDS: LEVOTHYROXINE SODIUM 100 MCG TAB PO SCH (05:34)
[2018-09-18 06:10] LABS: ANION GAP 11.3 mmol/L (8-16); BLOOD UREA NITROGEN 26 mg/dL (7-26); BUN/CREATININE RATIO 31 (6-25); CALCIUM 9.3 mg/dL (8.4-10.2); CARBON DIOXIDE 31 mmol/L (22-29); CHLORIDE 81 mmol/L (98-107); CREATININE, SERUM 0.83 mg/dL (0.72-1.25); EST GLOMERULAR FILTRATION RATE > 60 ML/MIN (60-); GLUCOSE 83 mg/dL (74-118); POTASSIUM 3.3 mmol/L (3.5-5.1); SODIUM 120 mmol/L (136-145)
[2018-09-18] MEDS: FUROSEMIDE INJ 10 MG/ML 4 ML VIAL IV SCH (09:00)
--- NOTE | 2018-09-18 10:03 | Progress Note ---
DATE: September 18, 2018 CARDIOLOGY PROGRESS NOTE SUBJECTIVE: No major events overnight. Patient was concerned about Lasix and his electrolytes, so he refused to take his dose yesterday. OBJECTIVE VITAL SIGNS: Temperature 96.4, pulse 98, respiratory rate 18, blood pressure 148/63, satting 98% on 3 L nasal cannula. GENERAL: Obese elderly white man in no acute distress. CARDIOVASCULAR: Regular rate and rhythm. No murmurs, rubs or gallops. LUNGS: Diminished breath sounds. Mild diffuse wheezing. ABDOMEN: Obese, soft, nontender. No masses. NEURO: Intact. Alert and oriented to person, place, and time. EXTREMITIES: With 3+ pitting edema. INPATIENT MEDICATIONS: Reviewed. LABORATORY DATA: Reviewed. Notable for a potassium of 3.3 and sodium of 120. TELEMETRY DATA: Reviewed. Shows sinus rhythm with occasional sinus tachycardia. ASSESSMENT AND PLAN 1. Vulbt-zu-pcleylu obstructive pulmonary disease exacerbation. 2. Bilateral lower extremity edema with venous insufficiency. 3. Dyspnea on exertion. 4. Hypertension. 5. History of tobacco use. 6. Peripheral arterial disease with abdominal aortic aneurysm. 7. Hyponatremia. RECOMMENDATIONS: Continue current cardiovascular medications. Considering severe hyponatremia, will defer to nephrology regarding holding Lasix. Patient does not need this for CHF solely for lower extremity edema. It is okay to hold if necessary. Would not treat this with salt tabs. Thank you for this consult. Will continue to follow. Job#: [id number] FERNANDA
[2018-09-18] MEDS: AZELASTINE HCL 137 MCG NASAL SPRAY NS SCH ×2 (10:23→18:02)
[2018-09-18] MEDS: AMLODIPINE BESYLATE 10 MG TAB PO SCH (10:24)
[2018-09-18] MEDS: NICOTINE 14 MG/EA PATCH TOP SCH (10:24)
[2018-09-18] MEDS: BENAZEPRIL HCL 10 MG TAB PO SCH (10:24)
[2018-09-18] MEDS: DOXYCYCLINE HYCLATE TABLET 100 MG TAB PO SCH ×2 (10:24→18:02)
[2018-09-18] MEDS: BENZONATATE 100 MG CAP PO SCH ×3 (10:24→21:25)
[2018-09-18] MEDS: PREDNISONE 20 MG TAB PO SCH (10:24)
[2018-09-18] MEDS: THEOPHYLLINE 200 MG TABCR PO SCH ×2 (10:24→21:25)
[2018-09-18] MEDS ORDERED: POTASSIUM CHLORIDE 20 MEQ TAB CR PO STA (12:00)
[2018-09-18] MEDS: SODIUM CHLORIDE 1 GM TAB PO SCH ×2 (14:06→21:25)
[2018-09-18] MEDS: ENOXAPARIN SOD INJ 40 MG/0.4 ML SYR SC SCH (18:02)
[2018-09-18] MEDS: ATORVASTATIN 10 MG TAB PO SCH (21:25)
[2018-09-19] VITALS (7 sets, daily range): BP systolic 95–121; BP diastolic 63–86
[2018-09-19] MEDS: ALBUTEROL/IPRATROPIUM 3 ML NEB NEB SCH ×5 (03:28→20:45)
--- NOTE | 2018-09-19 03:31 | Progress Note ---
DATE: September 19, 2018 PULMONARY MEDICINE PROGRESS NOTE SUBJECTIVE: Mr. Dooley was seen and examined at bedside. He did get his RENITA hose on to help the edema. He is 4.5 L per minute of oxygen flow. He is still having extensive shortness of breath and he is not close to where he should be. I had extensive discussion with the family and we discussed considerations of getting more rehabilitation before patient goes home. Patient continues with worsening sodium level on the diuretic. REVIEW OF SYSTEMS: No headaches, no nosebleed. OBJECTIVE VITAL SIGNS: Afebrile, vital signs noted per electronic record. GENERAL: No distress. Looks chronic. Weak. HEENT: Normocephalic, atraumatic. NECK: Supple. Throat midline. LUNGS: Bilateral air entry, decreased breath sounds, moderate wheezes, moderate rales. CARDIOVASCULAR: S1, S2. No murmurs, rubs or gallops. ABDOMEN: Soft, nontender. EXTREMITIES: No clubbing, no cyanosis. There is still the 3+ edema to the legs. INTEGUMENT: No rash, no purpura. LABS: Sodium 120, potassium 3.3, 26 BUN, 0.83 creatinine. White count 15, hematocrit 40, platelets 299,000. IMPRESSIONS AND PLAN 1. Fluid overload, whole body. 2. Emerging hyponatremia, likely intravascular volume depleted. 3. Hypokalemia due to diuretics. 4. Chronic obstructive pulmonary disease with exacerbation. 5. Low function endurance, much worse than baseline. 6. Chronic bronchitis. At this time, will continue with her PT and OT. I discussed with family and they agreed to get more rehab before he goes home with the consideration of long-term facility. However, it was felt by some that rehabilitation may be better for the patient; therefore, we will try for rehabilitation inpatient Medicare unit first. Salt tablets will be ordered. Continue to decrease diuretics and it was discussed with cardiology, so we would take over diuretic dosing. Continue RENITA hose. Of note, the IG level came back at [phone]. Patient will get further workup of his pulmonary condition. Job#: [id number]
[2018-09-19] MEDS: SODIUM CHLORIDE 1 GM TAB PO SCH ×2 (06:23→21:14)
[2018-09-19] MEDS: LEVOTHYROXINE SODIUM 100 MCG TAB PO SCH (06:23)
--- NOTE | 2018-09-19 06:31 | Diagnostic Imaging Report ---
CHEST SINGLE (PORTABLE), 09/19/2018 5:00 AM Technique: CHEST SINGLE (PORTABLE) Comparison: 09/17/2018 Clinical history: Pneumonia Findings: See Impression Impression: 1. Stable cardiomediastinal silhouette. 2. Increasing left lower lung opacities suspicious for infection. 3. No significant effusion. No pneumothorax. Signed by: Dr Jayna Hand MD on 09/19/2018 6:28 AM
[2018-09-19 08:16] LABS: BASOPHILS % 0.1 % (0.0-1.0); EOSINOPHILS # (AUTO) 0.2 (0.0-0.4); EOSINOPHILS % 1.1 % (0.0-6.0); HEMATOCRIT 40.2 % (38.2-49.6); HEMOGLOBIN 14.4 g/dL (14.0-18.0); LYMPHOCYTES # (AUTO) 3.6 (1.0-3.2); LYMPHOCYTES % 25.7 % (18.0-39.1); MEAN CORPUSCULAR HEMOGLOBIN 33.4 pg (28-32); MEAN CORPUSCULAR HGB CONC 35.8 g/dL (31-35); MEAN CORPUSCULAR VOLUME 93.3 fL (81-99); MONOCYTES # (AUTO) 1.3 (0.2-0.8); MONOCYTES % 9.1 % (4.4-11.3); NEUTROPHILS % 63.6 % (38.7-80.0); PLATELET COUNT 293 x10e3/uL (140-360); RED BLOOD COUNT 4.31 x10e6/uL (4.3-5.7); RED CELL DISTRIBUTION WIDTH 12.1 % (11.7-14.4)
[2018-09-19] MEDS: FUROSEMIDE INJ 10 MG/ML 4 ML VIAL IV SCH (09:19)
[2018-09-19] MEDS: LORATADINE 10 MG TAB PO SCH (09:19)
[2018-09-19] MEDS: NICOTINE 14 MG/EA PATCH TOP SCH (09:20)
[2018-09-19] MEDS: AMLODIPINE BESYLATE 10 MG TAB PO SCH (09:20)
[2018-09-19] MEDS: DOXYCYCLINE HYCLATE TABLET 100 MG TAB PO SCH (09:20)
[2018-09-19] MEDS: BENZONATATE 100 MG CAP PO SCH ×3 (09:20→21:14)
[2018-09-19] MEDS: PREDNISONE 20 MG TAB PO SCH (09:20)
[2018-09-19] MEDS: THEOPHYLLINE 200 MG TABCR PO SCH ×2 (09:20→21:14)
[2018-09-19] MEDS: BENAZEPRIL HCL 10 MG TAB PO SCH (09:20)
[2018-09-19] MEDS: AZELASTINE HCL 137 MCG NASAL SPRAY NS SCH ×2 (09:21→16:32)
[2018-09-19 10:27] LABS: ANION GAP 14.2 mmol/L (8-16); BLOOD UREA NITROGEN 22 mg/dL (7-26); BUN/CREATININE RATIO 28 (6-25); CALCIUM 9.5 mg/dL (8.4-10.2); CARBON DIOXIDE 31 mmol/L (22-29); CHLORIDE 84 mmol/L (98-107); CREATININE, SERUM 0.79 mg/dL (0.72-1.25); EST GLOMERULAR FILTRATION RATE > 60 ML/MIN (60-); GLUCOSE 72 mg/dL (74-118); POTASSIUM 4.2 mmol/L (3.5-5.1); SODIUM 125 mmol/L (136-145)
--- NOTE | 2018-09-19 18:41 | Progress Note ---
DATE: September 19, 2018 CARDIOLOGY PROGRESS NOTE SUBJECTIVE: Patient denies chest pain or shortness of breath. OBJECTIVE VITAL SIGNS: Temperature 96.2 degrees, pulse 103, respiratory rate 20, blood pressure 95/63, oxygen saturation 95% on 3 liters nasal cannula. GENERAL: Overweight man, in no acute distress, awake and alert. LUNGS: Diminished breath sounds. No wheezes or crackles. CARDIOVASCULAR: Normal rate, regular rhythm. No murmur. Normal S1 and S2. ABDOMEN: Soft, nontender. EXTREMITIES: 3+ pitting edema. CARDIAC MEDICATIONS 1. Amlodipine 10 mg p.o. daily. 2. Furosemide 40 mg IV daily. 3. Levothyroxine 175 mcg p.o. daily. 4. Atorvastatin 10 mg p.o. q.h.s. LABS: WBC 14.16, hemoglobin 14.4, hematocrit 48.2, platelets 293. Sodium 125, potassium 4.2, chloride 84, CO2 of 31, BUN 22, creatinine 0.79. IMAGING: Chest x-ray, stable cardiomediastinal silhouette, increasing left lower lung opacity suspicious for infection, no significant effusion, no pneumothorax. TELEMETRY: Sinus tachycardia. IMPRESSION 1. Lpmyn-pa-zhumomp obstructive pulmonary disease exacerbation. 2. Bilateral lower extremity edema with venous insufficiency. 3. Dyspnea on exertion. 4. Hypertension. 5. History of tobacco use. 6. Peripheral arterial disease with abdominal aortic aneurysm. 7. Hyponatremia. RECOMMENDATIONS: Continue current cardiac medications. Recommend compression wrapping of bilateral lower extremities. Continue physical therapy and occupational therapy. Patient is pending rehab placement. Continue monitoring patient on telemetry. Thank you for this consult. We will continue to follow. Job#: [id number] VAS
[2018-09-19] MEDS: ATORVASTATIN 10 MG TAB PO SCH (21:14)
[2018-09-19] MEDS: MONTELUKAST SODIUM 10 MG TAB PO SCH (21:14)
[2018-09-20] MEDS: ALBUTEROL/IPRATROPIUM 3 ML NEB NEB SCH ×7 (00:05→23:00)
[2018-09-20 01:55] VITALS: BP 96/65
[2018-09-20 04:46] VITALS: BP 109/58
--- NOTE | 2018-09-20 05:26 | Progress Note ---
DATE: September 19, 2018 PULMONARY MEDICINE PROGRESS NOTE SUBJECTIVE: Patient is eating better today. He is motivated for rehab per staff. Patient continues to have a lot of leg edema. I notified him about the very high IgE level that we had. REVIEW OF SYSTEMS: No chest pain, no rash. OBJECTIVE VITAL SIGNS: Afebrile, vital signs noted per electronic record. GENERAL: No acute distress, alert, slightly better color today. HEENT: Normocephalic, atraumatic. NECK: Supple. Throat midline. LUNGS: Bilateral air entry is moderate, moderate wheezes. CARDIOVASCULAR: S1 and S2. No murmurs, rubs or gallops. ABDOMEN: Soft and nontender. EXTREMITIES: No clubbing, no cyanosis. There is still 2-3+ edema. INTEGUMENT: No rash, no purpura. LABS: Sodium 125, 4.2 potassium, 22 BUN, and 0.9 creatinine. White count 14 and 40 hematocrit. IMPRESSION AND PLAN 1. Fluid overload, cor pulmonate, predominant. 2. Chronic obstructive pulmonary disease with exacerbation. 3. Chronic bronchitis. 4. Significantly elevated IgE level, under investigation. 5. Hyponatremia. 6. Weakness. We will give more sodium chloride tablet and follow up sodium levels. Repeat electrolytes in a couple of days. Continue prednisone weaning. We escalated antihistamine therapy yesterday and Singulair. We will wait tests to follow up on IgE level including aspergillus antibodies, antibodies, rheumatoid factor, ANCA levels. Job#: [id number] NAVEED
[2018-09-20] MEDS: SODIUM CHLORIDE 1 GM TAB PO SCH ×3 (05:32→20:46)
[2018-09-20] MEDS: LEVOTHYROXINE SODIUM 100 MCG TAB PO SCH (05:32)
[2018-09-20 07:43] VITALS: BP 134/71
[2018-09-20] MEDS: AZELASTINE HCL 137 MCG NASAL SPRAY NS SCH ×2 (08:39→16:10)
[2018-09-20] MEDS: FUROSEMIDE INJ 10 MG/ML 4 ML VIAL IV SCH (08:39)
[2018-09-20] MEDS: BENAZEPRIL HCL 10 MG TAB PO SCH (08:39)
[2018-09-20] MEDS: LORATADINE 10 MG TAB PO SCH (08:39)
[2018-09-20 08:44] VITALS: BP 134/71
[2018-09-20] MEDS: PREDNISONE 20 MG TAB PO SCH (08:44)
[2018-09-20] MEDS: AMLODIPINE BESYLATE 10 MG TAB PO SCH (08:44)
[2018-09-20] MEDS: THEOPHYLLINE 200 MG TABCR PO SCH ×2 (08:44→20:46)
[2018-09-20] MEDS: NICOTINE 14 MG/EA PATCH TOP SCH (08:44)
[2018-09-20] MEDS: BENZONATATE 100 MG CAP PO SCH ×3 (08:44→20:46)
[2018-09-20 12:00] VITALS: BP 105/58
[2018-09-20 14:47] LABS: BASOPHILS % 0.1 % (0.0-1.0); EOSINOPHILS % 0.1 % (0.0-6.0); HEMATOCRIT 40.4 % (38.2-49.6); HEMOGLOBIN 14.4 g/dL (14.0-18.0); LYMPHOCYTES # (AUTO) 0.8 (1.0-3.2); LYMPHOCYTES % 6.4 % (18.0-39.1); MEAN CORPUSCULAR HEMOGLOBIN 33.4 pg (28-32); MEAN CORPUSCULAR HGB CONC 35.6 g/dL (31-35); MEAN CORPUSCULAR VOLUME 93.7 fL (81-99); MONOCYTES # (AUTO) 0.8 (0.2-0.8); MONOCYTES % 6.3 % (4.4-11.3); NEUTROPHILS # (AUTO) 10.5 (2.1-6.9); NEUTROPHILS % 86.3 % (38.7-80.0); PLATELET COUNT 312 x10e3/uL (140-360); RED BLOOD COUNT 4.31 x10e6/uL (4.3-5.7); RED CELL DISTRIBUTION WIDTH 12.1 % (11.7-14.4)
--- NOTE | 2018-09-20 15:07 | Progress Note ---
DATE: September 20, 2018 SUBJECTIVE: Patient's breathing is stable. He has improved since admission, but he still has some dyspnea on exertion and some wheezing. He is awaiting transfer to [facility]. The patient is expressed concern about his medications. He is very concerned about the change in his blood pressure medications as well as in the treatment for the hyponatremia. OBJECTIVE VITAL SIGNS: Blood pressure is 134/71, the pulse is 101, the respiratory rate is 18, and the saturation is 99% on 3 liters. HEENT: Shows no facial swelling or erythema. The nasal mucosa is normal. The oropharynx is normal. LYMPHATIC: Shows no submandibular, cervical, or supraclavicular adenopathy. CARDIAC: Reveals regular rate and rhythm with normal S1 and S2. LUNGS: Auscultation of lungs reveals a few wheezes on expiration. ABDOMEN: Soft, nontender. There is no rebound or guarding. EXTREMITIES: The patient has 1+ lower extremity edema. IMPRESSION 1. Amxwb-lt-qihcwyp respirator failure. 2. Chronic obstructive pulmonary disease with acute exacerbation. 3. Cor pulmonale with bilateral leg edema. 4. Hyponatremia. PLAN 1. Patient will continue his current medications. 2. Repeat sodium now. 3. Consider fluid restriction depending on the results of the sodium level. 4. Physical therapy. 5. Awaiting potential [facility]. Job#: [id number] DORINA MCNEILL
[2018-09-20 15:26] LABS: ALANINE AMINOTRANSFERASE 49 IU/L (0-55); ALBUMIN 3.6 g/dL (3.5-5.0); ALBUMIN/GLOBULIN RATIO 1.2 (0.8-2.0); ALKALINE PHOSPHATASE 55 IU/L (40-150); BLOOD UREA NITROGEN 19 mg/dL (7-26); BUN/CREATININE RATIO 21 (6-25); CALCIUM 9.3 mg/dL (8.4-10.2); CARBON DIOXIDE 32 mmol/L (22-29); CHLORIDE 84 mmol/L (98-107); CREATININE, SERUM 0.92 mg/dL (0.72-1.25); EST GLOMERULAR FILTRATION RATE > 60 ML/MIN (60-); GLUCOSE 184 mg/dL (74-118); SODIUM 126 mmol/L (136-145)
[2018-09-20] MEDS ORDERED: SODIUM CHLORIDE 1 GM TAB PO SCH (16:30)
--- NOTE | 2018-09-20 18:38 | Progress Note ---
DATE: September 20, 2018 CARDIOLOGY PROGRESS NOTE SUBJECTIVE: Patient denies chest pain. He continues to have dyspnea on exertion. OBJECTIVE VITAL SIGNS: Temperature 96 degrees, pulse 99, respiratory rate 20, blood pressure 134/71, oxygen saturation 90% on 3 liters nasal cannula. GENERAL: Overweight man, in no acute distress, awake and alert. LUNGS: Diminished breath sounds. Scattered wheezes. No crackles appreciated. CARDIOVASCULAR: Normal rate, regular rhythm. No murmur. Normal S1 and S2. ABDOMEN: Soft, nontender. EXTREMITIES: 3+ pitting edema with compression stockings in place. CARDIAC MEDICATIONS 1. Amlodipine 10 mg p.o. daily. 2. Benazepril 20 mg p.o. daily. 3. Levothyroxine 175 mcg p.o. daily. 4. Atorvastatin 10 mg p.o. q.h.s. 5. Furosemide 40 mg IV daily. LABS: WBC 12.16, hemoglobin 14.4, hematocrit 48.4, platelets 312. Sodium 126, potassium 4, chloride 84, CO2 of 32, BUN 19, creatinine 0.92. TELEMETRY: Normal sinus rhythm with episodes of nonsustained ventricular tachycardia. IMPRESSION 1. Surxg-do-bxhopwq chronic obstructive pulmonary disease exacerbation. 2. Bilateral lower extremity edema with venous insufficiency. 3. Dyspnea on exertion. 4. Hypertension. 5. Hyponatremia. 6. Peripheral arterial disease with abdominal aortic aneurysm. 7. History of tobacco use. RECOMMENDATIONS: Continue current cardiac medications. Continue compression stockings. Patient is refusing diuretics. Recommend 2 gram sodium restriction as well as 2 liter fluid restriction. Continue physical therapy and occupational therapy. Patient is pending placement at inpatient rehab. Continue monitoring patient on telemetry. Thank you for this consult. We will continue to follow. Job#: [id number] ALEXANDRA
[2018-09-20 20:00] VITALS: BP 92/61
[2018-09-20] MEDS: MONTELUKAST SODIUM 10 MG TAB PO SCH (20:46)
[2018-09-20] MEDS: ATORVASTATIN 10 MG TAB PO SCH (20:46)
[2018-09-21] VITALS: BP 113/65
[2018-09-21] MEDS: ALBUTEROL/IPRATROPIUM 3 ML NEB NEB SCH ×6 (02:23→23:00)
[2018-09-21 04:00] VITALS: BP 117/71
[2018-09-21] MEDS: LEVOTHYROXINE SODIUM 100 MCG TAB PO SCH (05:23)
[2018-09-21] MEDS: SODIUM CHLORIDE 1 GM TAB PO SCH ×2 (05:23→14:00)
--- NOTE | 2018-09-21 06:31 | Diagnostic Imaging Report ---
CHEST SINGLE (PORTABLE), 09/21/2018 5:00 AM Technique: CHEST SINGLE (PORTABLE) Comparison: 09/19/2018 Clinical history: Congestive heart failure Findings: See Impression Impression: 1. Stable cardiomediastinal silhouette. 2. Improved left basilar opacity from prior, previously thought to reflect pneumonia. No new abnormality. 3. No edema or significant effusion. No pneumothorax. Signed by: Dr Jayna Hand MD on 09/21/2018 6:28 AM
[2018-09-21 06:38] LABS: BASOPHILS % 0.1 % (0.0-1.0); EOSINOPHILS # (AUTO) 0.1 (0.0-0.4); EOSINOPHILS % 0.7 % (0.0-6.0); HEMATOCRIT 41.1 % (38.2-49.6); HEMOGLOBIN 14.1 g/dL (14.0-18.0); LYMPHOCYTES # (AUTO) 3.2 (1.0-3.2); LYMPHOCYTES % 23.6 % (18.0-39.1); MEAN CORPUSCULAR HEMOGLOBIN 32.8 pg (28-32); MEAN CORPUSCULAR HGB CONC 34.3 g/dL (31-35); MEAN CORPUSCULAR VOLUME 95.6 fL (81-99); MONOCYTES # (AUTO) 1.4 (0.2-0.8); NEUTROPHILS # (AUTO) 8.9 (2.1-6.9); NEUTROPHILS % 64.9 % (38.7-80.0); PLATELET COUNT 293 x10e3/uL (140-360); RED CELL DISTRIBUTION WIDTH 12.3 % (11.7-14.4)
[2018-09-21 07:00] LABS: ALANINE AMINOTRANSFERASE 43 IU/L (0-55); ALBUMIN 3.5 g/dL (3.5-5.0); ALBUMIN/GLOBULIN RATIO 1.3 (0.8-2.0); ALKALINE PHOSPHATASE 52 IU/L (40-150); ANION GAP 11.1 mmol/L (8-16); BLOOD UREA NITROGEN 15 mg/dL (7-26); BUN/CREATININE RATIO 19 (6-25); CALCIUM 9.4 mg/dL (8.4-10.2); CARBON DIOXIDE 33 mmol/L (22-29); CHLORIDE 91 mmol/L (98-107); EST GLOMERULAR FILTRATION RATE > 60 ML/MIN (60-); GLUCOSE 81 mg/dL (74-118); POTASSIUM 4.1 mmol/L (3.5-5.1); SODIUM 131 mmol/L (136-145)
[2018-09-21 07:50] VITALS: BP 117/71
[2018-09-21] MEDS: FUROSEMIDE INJ 10 MG/ML 4 ML VIAL IV SCH (07:52)
[2018-09-21] MEDS: THEOPHYLLINE 200 MG TABCR PO SCH ×2 (07:52→20:12)
[2018-09-21] MEDS: AZELASTINE HCL 137 MCG NASAL SPRAY NS SCH ×2 (07:52→15:38)
[2018-09-21] MEDS: AMLODIPINE BESYLATE 10 MG TAB PO SCH (07:52)
[2018-09-21] MEDS: PREDNISONE 20 MG TAB PO SCH (07:52)
[2018-09-21] MEDS: NICOTINE 14 MG/EA PATCH TOP SCH (07:52)
[2018-09-21] MEDS: BENZONATATE 100 MG CAP PO SCH ×3 (07:52→20:12)
[2018-09-21] MEDS: LORATADINE 10 MG TAB PO SCH (07:52)
[2018-09-21 08:03] VITALS: BP 116/66
[2018-09-21] MEDS: BENAZEPRIL HCL 10 MG TAB PO SCH (09:00)
[2018-09-21 16:00] VITALS: BP 112/75
--- NOTE | 2018-09-21 19:04 | Progress Note ---
DATE: September 21, 2018 CARDIOLOGY PROGRESS NOTE SUBJECTIVE: Patient denies chest pain. He reports his shortness of breath is a little better. OBJECTIVE VITAL SIGNS: Temperature 96.5 degrees, pulse 81, respiratory rate 18, blood pressure 116/66, oxygen saturation 98% on 3 liters nasal cannula. GENERAL: Awake and alert, in no acute distress. He is overweight. LUNGS: Diminished breath sounds. Scattered wheezes. No crackles. CARDIOVASCULAR: Normal rate, regular rhythm. No murmur. Normal S1 and S2. ABDOMEN: Soft, nontender. EXTREMITIES: 3+ pitting edema with compression stockings present. CARDIAC MEDICATIONS 1. Amlodipine 10 mg p.o. daily. 2. Levothyroxine 175 mcg p.o. daily. 3. Atorvastatin 10 mg p.o. at bedtime. LABS: WBC 13.71, hemoglobin 14.1, hematocrit 41.1, platelets 293. Sodium 131, potassium 4.1, chloride 91, CO2 of 33, BUN 15, creatinine 0.8. TELEMETRY: Normal sinus rhythm with PACs. IMPRESSION 1. Qhvok-kt-fopgogi obstructive pulmonary disease exacerbation. 2. Bilateral lower extremity edema with venous insufficiency. 3. Dyspnea on exertion. 4. Hypertension. 5. History of tobacco use. 6. Peripheral arterial disease with abdominal aortic aneurysm. 7. Hyponatremia. RECOMMENDATIONS: Continue current cardiac medications. Recommend compression stocking of bilateral lower extremities. Continue physical therapy and occupational therapy. Patient is pending rehab placement. Continue monitoring patient on telemetry. Thank you for this consult. We will continue to follow. Job#: [id number] [facility]
[2018-09-21 20:00] VITALS: BP 105/79
[2018-09-21] MEDS: MONTELUKAST SODIUM 10 MG TAB PO SCH (20:12)
[2018-09-21] MEDS: ATORVASTATIN 10 MG TAB PO SCH (20:12)
[2018-09-22] VITALS (7 sets, daily range): BP systolic 101–166; BP diastolic 69–90
[2018-09-22] MEDS: ALBUTEROL/IPRATROPIUM 3 ML NEB NEB SCH ×6 (02:27→23:00)
[2018-09-22] MEDS: LEVOTHYROXINE SODIUM 100 MCG TAB PO SCH (05:22)
[2018-09-22 06:14] LABS: BASOPHILS % 0.2 % (0.0-1.0); EOSINOPHILS # (AUTO) 0.2 (0.0-0.4); EOSINOPHILS % 1.2 % (0.0-6.0); HEMATOCRIT 41.9 % (38.2-49.6); HEMOGLOBIN 14.4 g/dL (14.0-18.0); LYMPHOCYTES # (AUTO) 4.1 (1.0-3.2); LYMPHOCYTES % 26.4 % (18.0-39.1); MEAN CORPUSCULAR HGB CONC 34.4 g/dL (31-35); MEAN CORPUSCULAR VOLUME 95.9 fL (81-99); MONOCYTES # (AUTO) 1.5 (0.2-0.8); MONOCYTES % 9.7 % (4.4-11.3); NEUTROPHILS # (AUTO) 9.5 (2.1-6.9); NEUTROPHILS % 61.5 % (38.7-80.0); PLATELET COUNT 303 x10e3/uL (140-360); RED BLOOD COUNT 4.37 x10e6/uL (4.3-5.7); RED CELL DISTRIBUTION WIDTH 12.2 % (11.7-14.4)
[2018-09-22 06:39] LABS: ANION GAP 10.8 mmol/L (8-16); BLOOD UREA NITROGEN 19 mg/dL (7-26); BUN/CREATININE RATIO 23 (6-25); CALCIUM 9.8 mg/dL (8.4-10.2); CARBON DIOXIDE 31 mmol/L (22-29); CHLORIDE 92 mmol/L (98-107); CREATININE, SERUM 0.81 mg/dL (0.72-1.25); EST GLOMERULAR FILTRATION RATE > 60 ML/MIN (60-); GLUCOSE 89 mg/dL (74-118); MAGNESIUM 2.1 MG/DL (1.3-2.1); POTASSIUM 3.8 mmol/L (3.5-5.1); SODIUM 130 mmol/L (136-145)
[2018-09-22] MEDS: LORATADINE 10 MG TAB PO SCH (09:09)
[2018-09-22] MEDS: BENZONATATE 100 MG CAP PO SCH ×3 (09:09→20:32)
[2018-09-22] MEDS: NICOTINE 14 MG/EA PATCH TOP SCH (09:09)
[2018-09-22] MEDS: AZELASTINE HCL 137 MCG NASAL SPRAY NS SCH ×2 (09:09→16:58)
[2018-09-22] MEDS: BENAZEPRIL HCL 10 MG TAB PO SCH (09:09)
[2018-09-22] MEDS: PREDNISONE 20 MG TAB PO SCH (09:09)
[2018-09-22] MEDS: THEOPHYLLINE 200 MG TABCR PO SCH ×2 (09:09→20:32)
[2018-09-22] MEDS: AMLODIPINE BESYLATE 10 MG TAB PO SCH (09:09)
--- NOTE | 2018-09-22 11:29 | Progress Note ---
DATE: September 22, 2018 PULMONARY MEDICINE PROGRESS NOTE SUBJECTIVE: Mr. Dooley was seen and examined at bedside. He is having a lot of arthritis. Vital signs, however, are unremarkable. He continues to be using oxygen at 3 liters per minute nasal cannula with 98% oxygen saturation. The patient's breathing is still impaired, but better compared to last week. REVIEW OF SYSTEMS: No headache. No bleeding. OBJECTIVE VITAL SIGNS: Afebrile, vital signs noted per electronic record. GENERAL: No acute distress, alert, sitting up, looks chronic. HEENT: Normocephalic, atraumatic. NECK: Supple. Throat midline. LUNGS: Bilateral air entry, moderate air entry, a few wheezes. CARDIOVASCULAR: S1 and S2. No murmurs, rubs or gallops. ABDOMEN: Soft and nontender. EXTREMITIES: No clubbing, no cyanosis. There is 2-3+ leg edema. INTEGUMENT: No rash, no purpura. LABS: Sodium 130, 31 bicarbonate, 19 BUN, 0.8 creatinine. MYRNA is negative. Rheumatoid factor is normal. Chest x-ray with improved left basilar opacity, improved pneumonia. IMPRESSION AND PLAN 1. Chronic obstructive pulmonary disease with exacerbation. 2. Chronic respiratory failure. 3. Pneumonia. 4. Very markedly elevated IgE level. 5. Weakness. 6. Cor pulmonale. Continue diuretics as safe at this time. Continue wrapping the legs. Of note, the Lasix has been stopped. Will follow along the sodium. The patient refused sodium tablets yesterday. Job#: [id number]
--- NOTE | 2018-09-22 13:12 | Discharge Summary ---
PRIMARY CARE DOCTOR: Eric Spain MD, with [facility]. FINAL DIAGNOSIS: Severe hxpkv-bl-xvemqem obstructive pulmonary disease exacerbation. SECONDARY DIAGNOSES 1. Chronic respiratory failure. 2. Very markedly elevated IgE level. 3. Cor pulmonale. 4. Hypertension. 5. Hypothyroidism. CONSULTANTS 1. Dr. Calle, pulmonology. 2. Dr. Bergman, cardiology. PROCEDURES/STUDIES PERFORMED: CT of the chest, which did not show any PE. HISTORY: Per [facility]. HOSPITAL COURSE: The patient was admitted. It took a while for his wheezing to slowly improve. The patient underwent a course of doxycycline. He is still on steroid. He is on nebulizer treatment oyaryc-ndh-uqssk every 4 hours. IV Lasix was given as well. Subsequently, theophylline was started per power system dispatcher. Given the fact that his IgE level was very elevated, Singulair and Claritin were started as well. The patient will need further studies per [facility] power system dispatcher. Home O2 will be set up. The patient will also need home physical therapy. The patient was seen and examined today. It took 32 minutes total to discharge this patient. CONDITION ON DISCHARGE: Improved. DISCHARGE MEDICATIONS: Please see medication reconciliation form. EDUARD HAMPTON M.D. Job#: [id number] cc:ERIC SPAIN MD
[2018-09-22] MEDS ORDERED: ENOXAPARIN SOD INJ 40 MG/0.4 ML SYR SC SCH (17:00)
[2018-09-22] MEDS: MONTELUKAST SODIUM 10 MG TAB PO SCH (20:32)
[2018-09-22] MEDS: ATORVASTATIN 10 MG TAB PO SCH (20:32)
[2018-09-23] VITALS: BP 134/66
[2018-09-23] MEDS: ALBUTEROL/IPRATROPIUM 3 ML NEB NEB SCH ×4 (03:00→14:55)
[2018-09-23 04:00] VITALS: BP 122/69
[2018-09-23] MEDS: LEVOTHYROXINE SODIUM 100 MCG TAB PO SCH (05:56)
[2018-09-23 07:20] VITALS: BP 128/75
[2018-09-23 07:58] VITALS: BP 128/75
[2018-09-23] MEDS ORDERED: PREDNISONE 20 MG TAB PO SCH (09:00)
[2018-09-23] MEDS: NICOTINE 14 MG/EA PATCH TOP SCH (09:03)
[2018-09-23] MEDS: THEOPHYLLINE 200 MG TABCR PO SCH (09:03)
[2018-09-23] MEDS: BENZONATATE 100 MG CAP PO SCH ×2 (09:03→15:14)
[2018-09-23] MEDS: AMLODIPINE BESYLATE 10 MG TAB PO SCH (09:03)
[2018-09-23] MEDS: AZELASTINE HCL 137 MCG NASAL SPRAY NS SCH (09:03)
[2018-09-23] MEDS: BENAZEPRIL HCL 10 MG TAB PO SCH (09:03)
[2018-09-23] MEDS: LORATADINE 10 MG TAB PO SCH (09:03)
[2018-09-23 12:12] VITALS: BP 103/64
--- NOTE | 2018-09-23 12:22 | Progress Note ---
DATE: September 23, 2018 PULMONARY MEDICINE PROGRESS NOTE SUBJECTIVE: Mr. Dooley was seen and examined at bedside. Patient continues to have some slow progress with his breathing. He is able to do more exertionally. He still has wheezing on lung exam. Home oxygen is being arranged. REVIEW OF SYSTEMS: No headache. No rash. OBJECTIVE VITAL SIGNS: Afebrile, vital signs noted per electronic record. GENERAL: No acute distress, alert, calm, but speak. HEENT: Normocephalic, atraumatic. NECK: Supple. Throat midline. LUNGS: Bilateral air entry with moderate breath sounds. Mild wheezing. CARDIOVASCULAR: S1 and S2. No murmurs, rubs or gallops. ABDOMEN: Soft and nontender. EXTREMITIES: No clubbing, no cyanosis. There is 2 to 3+ edema. INTEGUMENT: No rash, no purpura. LABS: Sodium 130, potassium 3.8, BUN 19, creatinine 0.8. White count 15 and hematocrit 42 yesterday. IMPRESSION AND PLAN 1. Chronic obstructive pulmonary disease with exacerbation. 2. Cor pulmonale. 3. Possible pneumonia. 4. Weakness, improving. 5. Very elevated IgE level. At this time, we will continue to wean down steroids. Theophylline will be continued as well as other inhaler medications. Patient will continue on allergy medicines that have been boosted. Nurse is going to provide the patient copy of immunoglobulin E lab test results and patient should get outside followup of these labs, which will include a request for these labs that are done here. Patient is getting home oxygen arranged. We will follow along while he is here, also follow up with his pulmonary doctor who he is spoken to. Job#: [id number] VAS
[2018-09-23 16:03] VITALS: BP 103/59
--- NOTE | 2018-09-23 16:10 | Progress Note ---
DATE: September 23, 2018 CARDIOLOGY PROGRESS NOTE SUBJECTIVE: No major events overnight. OBJECTIVE VITAL SIGNS: Temperature 96.6, pulse 90, respiratory rate 20, blood pressure 128/75, satting 98% on 3 L nasal cannula. GENERAL: Elderly white man in no acute distress. CARDIOVASCULAR: Regular rate and rhythm. No murmurs, rubs or gallops. LUNGS: Decreased air movement, but otherwise clear to auscultation bilaterally. No wheezing. ABDOMEN: Obese, soft, nontender. EXTREMITIES: Two plus edema improving from prior. NEURO AND PSYCH: Alert and oriented to person, place, and time. Normal affect. LABORATORY DATA: Reviewed. CARDIOVASCULAR MEDICATIONS: Reviewed. TELEMETRY DATA: Reviewed. Shows normal sinus rhythm with occasional sinus tachycardia. ASSESSMENT AND PLAN 1. Fqvzl-wb-dgfyrqa obstructive pulmonary disease exacerbation. 2. Bilateral lower extremity edema with venous insufficiency. 3. Dyspnea on exertion. 4. Hypertension. 5. History of tobacco use. 6. Peripheral arterial disease with abdominal aortic aneurysm. 7. Hyponatremia. PLAN: Continue current cardiac medications. Continue compression stockings and diuretics as tolerated. Pending rehab placement. Thank you for this consult. Will continue to follow. Job#: [id number] ND
--- NOTE | 2018-09-23 16:19 | Progress Note ---
DATE: September 22, 2018 CARDIOLOGY PROGRESS NOTE SUBJECTIVE: No major events overnight. Pending rehab placement. OBJECTIVE VITAL SIGNS: Please see chart. GENERAL: Obese, elderly white man, no acute distress. CARDIOVASCULAR: Regular rate and rhythm. No murmurs, rubs or gallops. Palpable carotid pulses. Palpable radial pulses. 2+ lower extremity edema. LUNGS: Clear to auscultation bilaterally. No respiratory distress. ABDOMEN: Obese, soft, nontender. No masses. CARDIOVASCULAR MEDICATIONS: Reviewed. TELEMETRY DATA: Reviewed. IMAGING DATA: Reviewed. ASSESSMENT 1. Bilateral lower extremity venous insufficiency. 2. Chronic lower extremity edema. 3. Chronic obstructive pulmonary disease exacerbation. 4. Peripheral arterial disease with abdominal aortic aneurysm. RECOMMENDATIONS: Continue current medical regimen. Will need a long-term Lasix for lower extremity edema management. Recommend bilateral lower extremity compression stockings to help with venous insufficiency. Can get venous studies and possible venous ablation as required as an outpatient. Agree with rehab placement to recover from his recent hospitalization. Thank you for this consult. Will continue to follow while he is in the hospital. Job#: [id number] [facility]
== END 2018-09-23 16:48 | disposition home health service (06) | DRG 189 ==
LOC: FSED 18:38 → ERHOLD 20:31 → MED/SURG3 22:56
PROVIDERS: ADMIT Internal Medicine; ATTEND Internal Medicine
DX: J96.21 Acute and chronic respiratory failure with hypoxia (principal); J18.9 Pneumonia, unspecified organism; J44.1 Chronic obstructive pulmonary disease with (acute) exacerbation; E87.1 Hypo-osmolality and hyponatremia; E66.2 Morbid (severe) obesity with alveolar hypoventilation; I50.32 Chronic diastolic (congestive) heart failure; I89.0 Lymphedema, not elsewhere classified; I87.2 Venous insufficiency (chronic) (peripheral); M40.209 Unspecified kyphosis, site unspecified; R53.81 Other malaise; E86.0 Dehydration; I27.81 Cor pulmonale (chronic); F17.210 Nicotine dependence, cigarettes, uncomplicated; E03.9 Hypothyroidism, unspecified; E78.5 Hyperlipidemia, unspecified; I11.0 Hypertensive heart disease with heart failure; Z82.49 Family history of ischemic heart disease and other diseases of the circulatory system; R21 Rash and other nonspecific skin eruption; M40.204 Unspecified kyphosis, thoracic region; I27.20 Pulmonary hypertension, unspecified; I73.9 Peripheral vascular disease, unspecified; I71.4 Abdominal aortic aneurysm, without rupture; R76.8 Other specified abnormal immunological findings in serum
CPT/HCPCS: 36415; 71045; 71275; 80048; 80053; 81003; 82550; 82553; 82607; 82785; 83615; 83735; 83880; 84443; 84484; 85025; 85379; 86021; 86039; 86431; 86606; 93005; 93306; 94640; 97139; 99284; J0456; J0696; J1200; J1650; J1940; J2270; J2405; J2930; J7512